=== PATIENT | male | born 1935 | race Caucasian/White ===

== ENCOUNTER 2019-12-05 10:10 | Observation (INO) | payer MEDICARE ==
[~2019-12-05] VITALS: Ht 175.3 cm; Wt 72.5 kg
[~2019-12-05 10:10] MED LIST: ALBU6.7H8 INH; AMLO10TA8 PO; ASPI81TA50 PO; ATOR20TA37 PO; BUDE10.2 INH; BUDE10.22 INH; CARV6.252 PO; CHOL500050 PO; GLYB5TAB3 PO; HYDR25TA6 PO; OMEP-110 PO; QUIN40TA15 PO; SPIR25TA5 PO; TIOT18CA INH; TRAZ50TA66 PO
[2019-12-05] MEDS: PLEASE ENTER HEIGHT AND WEIGHT MC SCH ×2 (11:00→19:00)
[2019-12-05] MEDS ORDERED: IRON1TAB60 PO (11:09)
[2019-12-05] MEDS ORDERED: EMPA10TA PO (11:09)
[2019-12-05] MEDS ORDERED: LEVO50TA5 PO (11:09)
[2019-12-05] MEDS ORDERED: APIX2.5T PO (11:09)
[2019-12-05] MEDS ORDERED: FLUT1BLS INH (11:09)
[2019-12-05] MEDS ORDERED: MULT1TAB57 PO (11:09)
[2019-12-05] MEDS ORDERED: FURO20TA3 PO (11:09)
[2019-12-05] MEDS ORDERED: CALC-35 PO (11:09)
[2019-12-05] MEDS ORDERED: LATA2.5D2 EACHEYE (11:09)
[2019-12-05] MEDS ORDERED: FEBU40TA PO (11:09)
[2019-12-05] MEDS ORDERED: LYSI500T25 PO (11:09)
[2019-12-05] MEDS ORDERED: PYRI100L2 PO (11:09)
[2019-12-05] MEDS ORDERED: MAGNESIUM PO (11:09)
[2019-12-05] MEDS ORDERED: POTA10TA12 PO (11:09)
[2019-12-05] MEDS ORDERED: ASCO100T5 PO (11:09)
[2019-12-05] MEDS ORDERED: AMIO200T42 PO (11:09)
[2019-12-05] MEDS ORDERED: TYLENOL PM PO (11:09)
[2019-12-05 11:14] VITALS: BP 168/78
[2019-12-05] MEDS ORDERED: FENTANYL PF 100 MCG/2ML ONE (11:28)
[2019-12-05] MEDS ORDERED: CEFAZOLIN 1,000 MG ONE (11:28)
[2019-12-05] MEDS ORDERED: LIDOCAINE 1%, 20ML ONE (11:28)
[2019-12-05] MEDS ORDERED: CEFAZOLIN PMX 1GM/50ML 50 ML ONE (11:28)
[2019-12-05] MEDS ORDERED: MIDAZOLAM 1 MG/ML, 5ML ONE (11:28)
[2019-12-05 11:41] LABS: ANION GAP 7 mmol/L (5-15); BASOPHILS # (AUTO) 0.04 x10^3/uL (0-0.1); BASOPHILS % (AUTO) 0 % (0-1); CALCIUM 9.4 mg/dL (8.5-10.1); CHLORIDE 104 mmol/L (98-107); EOSINOPHILS # (AUTO) 0.22 x10^3/uL (0-0.4); EOSINOPHILS % (AUTO) 2 % (1-7); LYMPHOCYTES # (AUTO) 1.49 x10^3/uL (1-3.4); LYMPHOCYTES % (AUTO) 15 % (22-44); MD NO; MEAN CORPUSCULAR HEMOGLOBIN 29.7 pg (27.5-34.5); MEAN CORPUSCULAR HGB CONC 32.5 g/dL (33.2-36.2); MEAN PLATELET VOLUME 7.9 fL (7.4-10.4); MONOCYTES # (AUTO) 0.76 x10^3/uL (0.2-0.8); MONOCYTES % (AUTO) 8 % (2-9); NEUTROPHILS # (AUTO) 7.32 x10^3/uL (1.8-6.8); NEUTROPHILS % (AUTO) 75 % (42-75); PLATELET COUNT 211 x10^3/uL (130-400); RED BLOOD COUNT 4.17 x10^6/uL (4.38-5.82); RED CELL DISTRIBUTION WIDTH 15.2 % (9.4-14.8)
[2019-12-05 11:42] LABS: CREATININE 2.23 mg/dL (0.7-1.3)
[2019-12-05] MEDS ORDERED: HOLD MEDICATION MC PRN (14:00)
[2019-12-05] MEDS ORDERED: ALBUTEROL HFA 90 MCG/SPRAY INH PRN (14:00)
[2019-12-05 14:23] VITALS: BP 147/77
[2019-12-05] MEDS ORDERED: PHARMACY INSTRUCTION MC PRN (14:30)
[2019-12-05] MEDS: SODIUM CHLORIDE 0.9% 1,000 ML IV SCH ×2 (15:00→18:47)
[2019-12-05] MEDS: CARVEDILOL 12.5 MG TABLET PO SCH (18:33)
[2019-12-05] MEDS: FUROSEMIDE 40 MG TABLET PO SCH (18:34)
[2019-12-05 20:13] VITALS: BP 128/65
[2019-12-05] MEDS ORDERED: ATORVASTATIN 10 MG TABLET PO SCH (21:00)
[2019-12-05] MEDS: CEFAZOLIN PMX 1GM/50ML 50 ML IVPB SCH (21:14)
[2019-12-05] MEDS: SODIUM CHLORIDE FLUSH 10ML SYR IVF SCH (21:15)
[2019-12-06 00:53] VITALS: BP 145/72
[2019-12-06] MEDS: SODIUM CHLORIDE 0.9% 1,000 ML IV SCH (02:47)
[2019-12-06] MEDS: PLEASE ENTER HEIGHT AND WEIGHT MC SCH (03:00)
[2019-12-06] MEDS ORDERED: LEVOTHYROXINE 50 MCG TABLET PO SCH (06:00)
[2019-12-06] MEDS: CEFAZOLIN PMX 1GM/50ML 50 ML IVPB SCH (06:27)
[2019-12-06] MEDS: CARVEDILOL 12.5 MG TABLET PO SCH (06:27)
[2019-12-06 07:23] VITALS: BP 151/65
[2019-12-06] MEDS ORDERED: FURO20TA3 PO (08:25)
[2019-12-06] MEDS: FUROSEMIDE 40 MG TABLET PO SCH (08:32)
[2019-12-06] MEDS: FLUTICASONE/VILANTEROL 200-25MCG/INH INH SCH ×2 (08:36→10:01)
[2019-12-06] MEDS: SODIUM CHLORIDE FLUSH 10ML SYR IVF SCH (08:36)
[2019-12-06] MEDS ORDERED: MULTIVITAMIN 1 TABLET PO SCH (09:00)
[2019-12-06] MEDS ORDERED: FEBUXOSTAT 40 MG TABLET PO SCH (09:00)
[2019-12-06] MEDS ORDERED: LATANOPROST OPHTH 0.005%, 2.5ML EACHEYE SCH (09:00)
[2019-12-06] MEDS ORDERED: AMIODARONE 200 MG TABLET PO SCH (09:00)
[2019-12-06] MEDS ORDERED: APIXABAN 2.5 MG TABLET PO SCH (13:00)
== END 2019-12-06 11:00 | disposition home or self-care (01) ==
LOC: CACL 10:10 → 5SO 13:31 → DCLOUNGE 12-06 10:58
PROVIDERS: ADMIT Internal Medicine Cardiovascular Disease; ATTEND Internal Medicine Cardiovascular Disease
DX: T82.110A Breakdown (mechanical) of cardiac electrode, initial encounter (principal); I25.5 Ischemic cardiomyopathy; I48.0 Paroxysmal atrial fibrillation; E78.5 Hyperlipidemia, unspecified; I25.10 Atherosclerotic heart disease of native coronary artery without angina pectoris; J44.9 Chronic obstructive pulmonary disease, unspecified; K21.9 Gastro-esophageal reflux disease without esophagitis; I13.0 Hypertensive heart and chronic kidney disease with heart failure and stage 1 through stage 4 chronic kidney disease, or unspecified chronic kidney disease; E11.22 Type 2 diabetes mellitus with diabetic chronic kidney disease; I50.22 Chronic systolic (congestive) heart failure; N18.3 Chronic kidney disease, stage 3 (moderate); M10.9 Gout, unspecified; E03.9 Hypothyroidism, unspecified; Z87.891 Personal history of nicotine dependence; Y71.2 Prosthetic and other implants, materials and accessory cardiovascular devices associated with adverse incidents; Z79.899 Other long term (current) drug therapy; Z95.810 Presence of automatic (implantable) cardiac defibrillator; Z87.442 Personal history of urinary calculi
CPT/HCPCS: 33207; 36415; 71045; 80048; 85025; 96361; 96365; 96366; 99156; 99157; C1721; C1892; G0378; J0690; J2250; J3010; J3490; J7030